=== PATIENT | female | born 1970 ===

== ENCOUNTER 2024-02-09 08:43 | Outpatient (REF) | payer MEDICARE, MEDICAID, SELFPAY ==
--- NOTE | ~2024-02-09 | XR_ITS ---
EXAMINATION: 3 views left knee. Single view right knee. CLINICAL INFORMATION: Pain in the left knee pain in the right knee COMPARISON: X-rays of the knees August 2016 TECHNIQUE: 3 views of the right knee including AP upright. Single AP upright view of the right knee FINDINGS: Left knee: The compartments are normal no joint space narrowing. No effusion. Surrounding bone and soft tissues unremarkable. Right knee: The medial and lateral compartments are normal. Surrounding bone and soft tissues normal. XR/XR knee RT 1V IMPRESSION: Left knee: Normal. Limited right knee: Normal. Electronically signed by: Audie Hernandez MD 02/13/2024 10:31 PM [facility]
--- NOTE | ~2024-02-09 | XR_ITS ---
EXAMINATION: 3 views left knee. Single view right knee. CLINICAL INFORMATION: Pain in the left knee pain in the right knee COMPARISON: X-rays of the knees August 2016 TECHNIQUE: 3 views of the right knee including AP upright. Single AP upright view of the right knee FINDINGS: Left knee: The compartments are normal no joint space narrowing. No effusion. Surrounding bone and soft tissues unremarkable. Right knee: The medial and lateral compartments are normal. Surrounding bone and soft tissues normal. XR/XR knee LT 3V IMPRESSION: Left knee: Normal. Limited right knee: Normal. Electronically signed by: Audie Hernandez MD 02/13/2024 10:31 PM [facility]
== END 2024-02-09 08:44 | disposition home or self-care (01) ==
LOC: HO.HOSX 08:43
PROVIDERS: Visit Provider Physician Assistant
DX: M25.562 Pain in left knee (principal); M25.561 Pain in right knee
CPT/HCPCS: 73560; 73562; 99202

== ENCOUNTER 2024-02-09 10:38 | Outpatient (AMB) | payer MEDICARE, SELFPAY ==
--- NOTE | 2024-02-09 10:48 | A.OFFVIS_ITS ---
Vital Signs 02/09/24 11:04 Height 5 ft 4 in Weight 197 lb BMI 33.8 Intake Visit Reasons: [employer]- Left knee pain Intake Note: Susan a 53 year old female who presents today for a new patient evaluation of left knee pain. Patient reports her pain has been present since October. She is not sure of the cause however mentions that she was wearing flip flops and had stepped in a hole. She was seen by her PCP for pain and swelling in her knee and ankle. She held off on treatment due to her going to [place], states her pain had improved however after time her pain returned. Currently her pain is located at the medial aspect of knee. She mentions that she had a recent stroke causing confusion and is still recovering. Hx of gely slatter. Hx of knee problems in her right knee. Allergies bee pollen Allergy (Unknown, Verified 02/09/24 10:56) Unknown erythromycin base [[place]-Tab] Allergy (Unknown, Verified 02/09/24 10:56) Unknown Bleach (Sodium Hypochlorite) Allergy (Verified 02/09/24 10:56) Unknown latex Allergy (Verified 02/09/24 10:56) sensitivity mold Allergy (Verified 02/09/24 10:56) Unknown Codeine Phosphate Allergy (Unknown, Uncoded 02/09/24 10:56) Unknown Egg/Pro Allergy (Unknown, Uncoded 02/09/24 10:56) Unknown Tetanus Allergy (Unknown, Uncoded 02/09/24 10:56) Unknown Tetanus Toxoid Adsorbed Allergy (Unknown, Uncoded 02/09/24 10:56) Unknown adhesive bandage Allergy (Uncoded 02/09/24 10:56) Unknown Medication List - Last Reconciled 02/09/24 by Floyd Dela Cruz PA-C albuterol sulfate 90 mcg/actuation inhalation amitriptyline 10 mg PO DAILY aspirin 81 mg PO DAILY atorvastatin 80 mg PO DAILY yiwrewnbto-mljpkdpifzoat-teja 50-325-40 mg tabs PO cetirizine 10 mg PO DAILY cyclobenzaprine 10 mg PO TID loratadine 10 mg PO DAILY magnesium oxide 400 mg PO DAILY PRN tizanidine 6 mg PO TID topiramate 25 mg PO BID HPI HPI [employer]UN[employer]INE [employer]CH[employer]IC- Left knee pain: Details: 53-year-old female who presents to the office today for an evaluation of left knee pain since October. She is unsure of the cause however she mentions she was wearing flip flops and stepped in a hole. She was seen by her PCP for her pain and swelling in knee and ankle. She reports she held off on treatment due to her going to [place] and her pain had improved however her knee pain returned. She currently states she has pain and swelling at the medial aspect of her knee that radiates to her calf. She also reports she has catching in her knee. She has a history of [place]-Schlatter disease and history of right knee pain. She has been working on physical therapy. She takes medical marijuana for her pain. She also states she had a stroke while in [place] causing confusion and is still recovering. [facility] Medical History (Updated 02/09/24 @ 11:19 by Floyd Dela Cruz PA-C) Small fiber neuropathy Fibromyalgia Stroke Surgical History (Updated 02/09/24 @ 10:58 by Miranda Razo [facility]) Hx of unilateral oophorectomy Hx of hernia repair Hx of breast surgery History of ankle surgery Hx of knee surgery Social History (Updated 02/09/24 @ 11:15 by Floyd Dela Cruz PA-C) Patient Tobacco Use Status: Current everyday Tobacco user Substance Use Type: Marijuana Substance Use Type Other:: medical marijuana Current occupational status: unemployed Review of Systems Const All systems reviewed & are unremarkable except as noted in HPI and below Physical Exam Vital Signs: BMI result Body Mass Index 33.8 Const General: cooperative, healthy appearing, comfortable, no acute distress, well developed and alert Orientation/consciousness: patient oriented x3 HEENT Head: Yes normal to inspection, Yes normocephalic and Yes atraumatic Eyes General: appearance normal, both eyes and all related structures Resp Effort & Inspection: normal respiratory effort and able to speak in complete sentences Cardio Rate: regular rate Peripheral pulses: Peripheral pulses 2+ throughout GI Palpation (GI): Soft to palpation Skin Lesions: no lesions Rashes: no rashes Neuro General: patient oriented x3 Extrem Other: Left knee: Skin intact, no erythema or joint effusion. Tenderness along the medial and lateral joint line. Full ROM with crepitus. Negative Billie?s. No ligamentous laxity. NVI. Results Reviewed Results Reviewed: Xrays were obtained in the office today and personally reviewed by me of the left knee show mild pf oa Assessment & Plan Assessment & Plan (1) Chondromalacia patellae, left knee: Code(s): M22.42 - Chondromalacia patellae, left knee Category: Medical Plan We discussed options which include PT, NSAIDs and injections. The patient will defer on the injection today and proceed with PT and NSAIDs. I did send her a prescription of Celebrex in the office today. If symptoms persist, she will contact me for an injection, otherwise, PRN. Orders: Orders XR knee LT 3V Today M25.562 - Pain in left knee XR knee RT 1V Today M25.561 - Pain in right knee PT Evaluation and Treatment Today M22.42 - Chondromalacia patellae, left knee Medications: New celecoxib (Celebrex) 200 mg PO BID 60 caps 3RF 30 days Patient Instructions: Scribed for Floyd Dela Cruz PA-C, by Raudel Lipscomb medical genetics director, on 02/09/2024 at 10:45 AM EST.? I, Floyd Dela Cruz PA-C, have personally reviewed and agree with the information entered by the scribe. Coding Level of Care Code New Pt Level 3 (33068) Complex EM visit Add On G2211 Diagnoses Chondromalacia patellae, left knee M22.42
[2024-02-09 11:04] VITALS: BMI 33.8
== END 2024-02-09 11:25 | disposition home or self-care (01) ==
PROVIDERS: PCP Internal Medicine; Visit Provider Physician Assistant
DX: M22.42 Chondromalacia patellae, left knee (principal)
CPT/HCPCS: 99203; G2211